=== PATIENT | male | born 1955 | race Caucasian/White ===

== ENCOUNTER → 2020-11-02 | Outpatient (CLI) | payer OTHER ==
[~2020-11-02] VITALS: Ht 182.9 cm; Wt 83.9 kg
[~2020-11-02] MED LIST: ALTACE10 MG PO; ALTACE5 M1; ASA5UEC PO; CRESTOR20 MG PO; HYDROCODON-ACE1 EAC5 PO; NIASPAN ER 101000 M1 PO; NORCO 10-325 T1 EACH PO; OXYCODONE-ACET1 EAC2 PO; ZETIA10 MG PO
[2020-11-02 15:39] VITALS: BP 156/80
--- NOTE | 2020-11-02 16:00 | NUR ---
[facility] Clinic Assessment: 1. History of Osteoarthritis: LUMBAR SPINE History of Rheumatoid Arthritis: NONE 2. Height: 6 ft. 0 in. 182.9 cm. Weight: 185.0 lb. oz. 83.916 kg. Patient's BMI: 25.1 3. Vital Signs: BP: 156/80 Pulse: 70 Resp: 16 Temp: 02 Sat: 97 ECG Mon: 4. Pain Intensity: 3 TO 5 5. Fall Risk: Dizziness: N Needs help standing or walking: N Fallen in the last 3 months: N Fall risk comments: 6. Patient on Blood Thinner: None 7. History of Hypertension: N 8. Opioid Therapy greater than 6 weeks: Y Opiate Contract Signed: 11/30/15 9. Risk Assessment Tool Provided: LOW-3 10. Functional Assessment Tool: 50/70 11. Recreational Drug Use: Never Drug Type: Tobacco Use: Never Smoker Tobacco Type: Amount or Packs/day: How Many Years: Alcohol Use: Yes Frequency: Weekly Quant: 1 TO 2
== END ==
LOC: PAIN 10:08
PROVIDERS: ATTEND Anesthesiology Pain Medicine
DX: G89.4 Chronic pain syndrome (principal); M54.16 Radiculopathy, lumbar region; F41.9 Anxiety disorder, unspecified; Z79.899 Other long term (current) drug therapy; Z79.891 Long term (current) use of opiate analgesic; Z72.89 Other problems related to lifestyle; Z88.5 Allergy status to narcotic agent